=== PATIENT | female | born 1955 | race Caucasian/White ===

== ENCOUNTER 2018-01-28 21:36 | Emergency (ER) | payer OTHER ==
[2018-01-28] MEDS ORDERED: Catapres 0.1 MG PO ONE (22:04)
[2018-01-28] MEDS ORDERED: Catapres 0.1 MG ONE (22:13)
--- NOTE | 2018-01-28 22:20 | ERPHSYRPT ---
- History of Present Illness Time Seen by Provider: 01/28/18 21:57 Source: patient Exam Limitations: no limitations Patient Subjective Stated Complaint: pt called ambulance for feeling flushed, and not feeling right tonight at home. ems states b/p was high intially and pt was nervous Triage Nursing Assessment: pt alert, resp easy, skin w/d/p. face flushed, skin w /d Physician History: Pt states, she started feeling flushed, overheated, felt heart "thumping" and SOB, called 911. Arriving EMS tech took her blood pressure, it was > 200, and brought her in. She denies any chest pain, no cough, fever, nausea, vomiting, diaphoresis, other complaints. She takes Tenormin 25 mg BID for her blood pressure. Timing/Duration: today Severity: mild Modifying Factors: Improves With: other (nothing) Associated Symptoms: shortness of breath Allergies/Adverse Reactions: Sulfa (Sulfonamide Antibiotics) Allergy (Intermediate, Verified 01/28/18 21:46) Hives ciprofloxacin [From Cipro] Adverse Reaction (Verified 01/28/18 21:46) levofloxacin [From Levaquin] Adverse Reaction (Verified 01/28/18 21:46) Home Medications: Atenolol 50 mg [Tenormin 50 mg] 25 mg PO BID 12/29/15 [History] raNITIdine HCl [Ranitidine HCl] 150 mg PO BID 12/29/15 [History] ALPRAZolam [Xanax ER 0.5MG] 0.5 mg HS PRN PRN 01/28/18 [History] Hx Tetanus, Diphtheria Vaccination/Date Given: Yes Hx Influenza Vaccination/Date Given: Yes Hx Pneumococcal Vaccination/Date Given: No Immunizations Up to Date: Yes - Review of Systems Constitutional: No Symptoms Respiratory: Dyspnea Cardiac: Palpitations All Other Systems: Reviewed and Negative - Past Medical History Pertinent Past Medical History: Yes Neurological History: Migraines Cardiac History: Arrhythmia, Hypertension Endocrine Medical History: Hyperthyroidism GI Medical History: GERD, Irritable Bowel Psycho-Social History: Anxiety - Past Surgical History Past Surgical History: Yes Gastrointestinal: Cholecystectomy Female Surgical History: Hysterectomy, Section, Other Other Surgical History: d&c - Social History Smoking Status: Never smoker Exposure to second hand smoke: No Drug Use: none Patient Lives Alone: No - Female History Hx Last Menstrual Period: post Hx Now: No - Nursing Vital Signs Nursing Vital Signs: Initial Vital Signs Temperature 98.7 F 01/28/18 21:40 Pulse Rate 85 01/28/18 21:40 Respiratory Rate 16 01/28/18 21:40 Blood Pressure 185/70 01/28/18 21:40 O2 Sat by Pulse Oximetry 97 01/28/18 21:40 Pain Scale Pain Intensity 4 - Physical Exam General Appearance: no apparent distress Eye Exam: PERRL/EOMI Ears, Nose, Throat Exam: normal ENT inspection, pharynx normal Neck Exam: normal inspection, non-tender, supple, No carotid bruit, No JVD Respiratory Exam: normal breath sounds, lungs clear, airway intact, No chest tenderness Cardiovascular Exam: regular rate/rhythm, normal heart sounds, normal peripheral pulses, No murmur Gastrointestinal/Abdomen Exam: soft, normal bowel sounds, No tenderness Back Exam: normal inspection, No CVA tenderness Extremity Exam: normal inspection, No calf tenderness Neurologic Exam: alert, oriented x 3, cooperative, normal mood/affect Skin Exam: normal color, warm, dry, No rash Lymphatic Exam: No adenopathy SpO2 Interpretation: normal SpO2: 97 Oxygen Delivery: Room Air - Course EKG Interpreted by Me: RATE (66/min), Left Clay Deviation, NORMAL INTERVALS, Non -specific ST Changes, Other (unchanged since 12/29/15, repeat Ek:30 AM; unchanged) - Radiology Exams Chest X-ray Interpretation: Interpreted by me, Negative Ordered Tests: Active Orders 24 hr Category Date Time Status EKG-ER Only STAT Care 01/28/18 22:03 Active EKG-ER Only STAT Care 01/29/18 00:14 Active CHEST 2 VIEWS (PA AND LAT) Stat Exams 01/28/18 22:04 Taken CBC W DIFF Stat Lab 01/28/18 22:21 Completed CMP Stat Lab 01/28/18 22:21 Completed CULTURE,URINE Stat Lab 01/28/18 22:27 Received D-DIMER QUANTITATION Stat Lab 01/28/18 22:21 Completed MAGNESIUM Stat Lab 01/28/18 22:21 Completed NT PRO BNP Stat Lab 01/28/18 22:21 Completed PROTIME WITH INR Stat Lab 01/28/18 22:21 Completed TROPONIN Q3H Lab 01/28/18 22:21 Completed TROPONIN Q3H Lab 01/29/18 00:57 Completed TROPONIN Q3H Lab 01/29/18 04:15 Ordered TROPONIN Q3H Lab 01/29/18 07:15 Ordered TROPONIN Q3H Lab 01/29/18 10:15 Ordered TROPONIN Q3H Lab 01/29/18 18:15 Ordered UA W/ MICROSCOPIC Stat Lab 01/28/18 22:27 Completed Medication Summary Discontinued Medications Generic Name Dose Route Start Last Admin Trade Name Freq PRN Reason Stop Dose Admin Cephalexin HCl 500 mg 01/29/18 00:43 01/29/18 00:53 Keflex 500 Mg PO 01/29/18 00:44 500 mg STAT ONE Administration Cephalexin HCl Confirm 01/29/18 00:47 Keflex 500 Mg Administered 01/29/18 00:48 Dose 500 mg .ROUTE .STK-MED ONE Clonidine 0.1 mg 01/28/18 22:04 01/28/18 22:30 Catapres 0.1 Mg PO 01/28/18 22:05 Not Given STAT ONE Clonidine Confirm 01/28/18 22:13 Catapres 0.1 Mg Administered 01/28/18 22:14 Dose 0.1 mg .ROUTE .STK-MED ONE Lab/Rad Data: Laboratory Result Diagrams 01/28/18 22:21 01/28/18 22:21 Laboratory Results 01/29/18 01/28/18 01/28/18 Range/Units 00:57 22:27 22:21 WBC (4.0-10.5) K/mm3 RBC (4.1-5.4) M/mm3 Hgb (12.0-16.0) gm/dl Hct (35-47) % MCV (78-100) fl MCH (26-32) pg MCHC (32-36) g/dl RDW (11.5-14.0) % Plt Count (150-450) K/mm3 MPV (6-9.5) fl Gran % (36.0-66.0) % Eos # (Auto) (0-0.5) Absolute Lymphs (auto) (1.0-4.6) Absolute Monos (auto) (0.0-1.3) Lymphocytes % (24.0-44.0) % Monocytes % (0.0-12.0) % Eosinophils % (0.00-5.0) % Basophils % (0.0-0.4) % Absolute Granulocytes (1.4-6.9) Basophils # (0-0.4) PT (9.95-12.35) SECONDS INR (0.8-3.0) D-Dimer (215-500) ng/mL Sodium (137-145) mmol/L Potassium (3.5-5.1) mmol/L Chloride (98-107) mmol/L Carbon Dioxide (22-30) mmol/L Anion Gap (5-15) MEQ/L BUN (7-17) mg/dL Creatinine (0.52-1.04) mg/dL Estimated GFR ML/MIN Glucose (74-106) mg/dL Calcium (8.4-10.2) mg/dL Magnesium (1.6-2.3) mg/dL Total Bilirubin (0.2-1.3) mg/dL AST (14-36) U/L ALT (0-35) U/L Alkaline Phosphatase (38-126) U/L Troponin I 0.025 < 0.012 (0.000-0.034) ng/mL NT-Pro-B Natriuret Pep (0-900) pg/mL Serum Total Protein (6.3-8.2) g/dL Albumin (3.5-5.0) g/dL Ur Collection Type VOID Urine Color LT.YELLOW (YELLOW) Urine Appearance HAZY (CLEAR) Urine pH 5.0 (5-6) Ur Specific [place] 1.010 (1.005-1.025) Urine Protein NEGATIVE (Negative) Urine Ketones NEGATIVE (NEGATIVE) Urine Blood 5-10 (0-5) Jos/ul Urine Nitrite NEGATIVE (NEGATIVE) Urine Bilirubin NEGATIVE (NEGATIVE) Urine Urobilinogen NORMAL (0-1) mg/dL Ur Leukocyte Esterase 2+ (NEGATIVE) Urine Microscopic RBC 0-2 (0-2) /HPF Urine Microscopic WBC 5-10 (0-5) /HPF Ur Epithelial Cells RARE (FEW) /HPF Urine Bacteria RARE (NEGATIVE) /HPF Urine Culture Reflexed YES (NO) Urine Glucose NEGATIVE (NEGATIVE) mg/dL Specimen Received 01/28 [id number] 01/28/18 01/28/18 01/28/18 Range/Units 22:21 22:21 22:21 WBC 9.1 (4.0-10.5) K/mm3 RBC 4.70 (4.1-5.4) M/mm3 Hgb 13.2 (12.0-16.0) gm/dl Hct 40.7 (35-47) % MCV 86.6 (78-100) fl MCH 28.1 (26-32) pg MCHC 32.4 (32-36) g/dl RDW 14.7 H (11.5-14.0) % Plt Count 344 (150-450) K/mm3 MPV 9.1 (6-9.5) fl Gran % 76.5 H (36.0-66.0) % Eos # (Auto) 0.11 (0-0.5) Absolute Lymphs (auto) 1.29 (1.0-4.6) Absolute Monos (auto) 0.73 (0.0-1.3) Lymphocytes % 14.1 L (24.0-44.0) % Monocytes % 8.0 (0.0-12.0) % Eosinophils % 1.2 (0.00-5.0) % Basophils % 0.2 (0.0-0.4) % Absolute Granulocytes 6.99 H (1.4-6.9) Basophils # 0.02 (0-0.4) PT 12.5 H (9.95-12.35) SECONDS INR 1.07 (0.8-3.0) D-Dimer 231 (215-500) ng/mL Sodium 144 (137-145) mmol/L Potassium 3.7 (3.5-5.1) mmol/L Chloride 107 (98-107) mmol/L Carbon Dioxide 24 (22-30) mmol/L Anion Gap 16.2 H (5-15) MEQ/L BUN 14 (7-17) mg/dL Creatinine 0.78 (0.52-1.04) mg/dL Estimated GFR > 60.0 ML/MIN Glucose 122 H (74-106) mg/dL Calcium 9.4 (8.4-10.2) mg/dL Magnesium 1.9 (1.6-2.3) mg/dL Total Bilirubin 0.50 (0.2-1.3) mg/dL AST 14 (14-36) U/L ALT 17 (0-35) U/L Alkaline Phosphatase 104 (38-126) U/L Troponin I (0.000-0.034) ng/mL NT-Pro-B Natriuret Pep 83.5 (0-900) pg/mL Serum Total Protein 7.0 (6.3-8.2) g/dL Albumin 4.1 (3.5-5.0) g/dL Ur Collection Type Urine Color (YELLOW) Urine Appearance (CLEAR) Urine pH (5-6) Ur Specific [place] (1.005-1.025) Urine Protein (Negative) Urine Ketones (NEGATIVE) Urine Blood (0-5) Jos/ul Urine Nitrite (NEGATIVE) Urine Bilirubin (NEGATIVE) Urine Urobilinogen (0-1) mg/dL Ur Leukocyte Esterase (NEGATIVE) Urine Microscopic RBC (0-2) /HPF Urine Microscopic WBC (0-5) /HPF Ur Epithelial Cells (FEW) /HPF Urine Bacteria (NEGATIVE) /HPF Urine Culture Reflexed (NO) Urine Glucose (NEGATIVE) mg/dL Specimen Received - Progress Progress: improved Progress Note: 01/29/18 01:36 Pt denies any pain, or SOB< comfortable, ambulates. I discussed our findings with her, she was given Keflex PO, second troponin is negative, she is being discharged to rest x 2-3 days, drink plenty of fluids, and follow up with her doctor next week. Counseled pt/family regarding: lab results, diagnosis, need for follow-up, rad results - Departure Time of Disposition: 01:38 Departure Disposition: Home Clinical Impression: UTI (urinary tract infection) Qualifiers: Urinary tract infection type: site unspecified Hematuria presence: without hematuria Qualified Code(s): N39.0 - Urinary tract infection, site not specified Hypertension Qualifiers: Hypertension type: unspecified Qualified Code(s): I10 - Essential (primary) hypertension Condition: Stable Critical Care Time: No Referrals: BLAKE CHOI [Primary Care Provider] - Instructions: High Blood Pressure in Adults, Urinary Tract Infection, Adult (DC ) Additional Instructions: Rest x 2-3 days, drink plenty of fluids, return if severe pain, vomiting, fever > 102 F or chest pain, shortness of breath! Prescriptions: Cephalexin Mh 500 mg [Keflex 500 mg] 500 mg PO Q6H #28 capsule
[2018-01-28 22:24] LABS: BASOPHIL % 0.2 % (0.0-0.4); Basophil (Absolute #) 0.02 (0-0.4); Eosinophil % 1.2 % (0.00-5.0); Eosinophil (Absolute #) 0.11 (0-0.5); Granulocyte Absolute (ANC) 6.99 (1.4-6.9); Granulocytes % 76.5 % (36.0-66.0); Hematocrit 40.7 % (35-47); Hemoglobin 13.2 gm/dl (12.0-16.0); Lymphocyte (Absolute #) 1.29 (1.0-4.6); Lymphocytes % 14.1 % (24.0-44.0); Mean Cell Volume 86.6 fl (78-100); Mean Corpuscular Hemoglobin 28.1 pg (26-32); Mean Corpuscular Hgb Concent. 32.4 g/dl (32-36); Mean Platelet Volume 9.1 fl (6-9.5); Monocyte (Absolute #) 0.73 (0.0-1.3); Platelet Count 344 K/mm3 (150-450); Red Cell Distribution Width 14.7 % (11.5-14.0); White Blood Count 9.1 K/mm3 (4.0-10.5)
[2018-01-28 22:39] LABS: INR 1.07 (0.8-3.0)
[2018-01-28 22:45] LABS: ALBUMIN 4.1 g/dL (3.5-5.0); ALKALINE PHOSPHATASE 104 U/L (38-126); ANION GAP 16.2 MEQ/L (5-15); BLOOD UREA NITROGEN 14 mg/dL (7-17); CHLORIDE 107 mmol/L (98-107); Calcium 9.4 mg/dL (8.4-10.2); Carbon Dioxide 24 mmol/L (22-30); Creatinine 1 0.78 mg/dL (0.52-1.04); Glucose 122 mg/dL (74-106); Potassium 3.7 mmol/L (3.5-5.1); SGOT/AST 14 U/L (14-36); SGPT/ALT 17 U/L (0-35); SODIUM 144 mmol/L (137-145)
[2018-01-28 22:53] LABS: NT PRO BNP 83.5 pg/mL (0-900)
[2018-01-28 23:19] LABS: Appearance HAZY (CLEAR); Bilirubin NEGATIVE (NEGATIVE); Glucose NEGATIVE (NEGATIVE); Ketones NEGATIVE (NEGATIVE); Leukocyte Esterase 2+ (NEGATIVE); Nitrite NEGATIVE (NEGATIVE); Protein,Urine Dip NEGATIVE (Negative); Urobilinogen NORMAL mg/dL (0-1)
[2018-01-28 23:23] LABS: Bacteria RARE /HPF (NEGATIVE); Epithelial Cells RARE /HPF (FEW); RBC 0-2 /HPF (0-2)
[2018-01-29] MEDS ORDERED: KEFLEX 500 MG PO ONE (00:43)
[2018-01-29] MEDS ORDERED: KEFLEX 500 MG ONE (00:47)
[2018-01-29 01:53] VITALS: BP 156/96; PULSE 70; O2SAT 98
--- NOTE | 2018-01-29 08:18 | XRAY ---
Indication: Dyspnea. Hypertension. Comparison: December 29, 2015. PA/lateral chest again demonstrates normal heart and lungs with a few incidental calcified granulomas. Bony thorax intact again with mild osteopenia, degenerative changes, and left humeral neck enchondroma. Impression: Stable nonacute chest with chronic features.
== END 2018-01-29 01:54 | disposition home or self-care (01) ==
LOC: ED 21:36
DX: N39.0 Urinary tract infection, site not specified (principal); I10 Essential (primary) hypertension; Z79.899 Other long term (current) drug therapy
CPT/HCPCS: 36415; 71046; 80053; 81000; 83735; 83880; 84484; 85025; 85379; 85610; 87086; 93005; 99284; A9270-GY

== ENCOUNTER 2019-04-18 20:22 | Emergency (ER) | payer OTHER ==
--- NOTE | 2019-04-18 20:32 | ERPHSYRPT ---
- History of Present Illness Time Seen by Provider: 04/18/19 20:27 Source: patient, EMS Exam Limitations: no limitations Physician History: 63 y/o obese white female with h/o in the past of atrial fibrillation on atenolol for htn. pt not on anticoag tx but states she has not had atrial fibrillation for years. pts sx was palpitations. pt became anxious and took a xanax. sx was not resolving. ems called. upon arrival, ems states she was in atrial fibrillation with rvr briefly on strip but immediately converted to nsr. Timing/Duration: today Activities at Onset: none Quality: other (palpitations) Chest Pain Radiation: no radiation Severity of Pain-Max: none Severity of Pain-Current: none Nitro Today/Relief: no nitro taken today Aspirin Treatment Today: no aspirin today Associated Symptoms: denies symptoms Allergies/Adverse Reactions: Sulfa (Sulfonamide Antibiotics) Allergy (Intermediate, Verified 01/28/18 21:46) Hives azithromycin Allergy (Verified 04/18/19 20:39) ciprofloxacin [From Cipro] Adverse Reaction (Verified 01/28/18 21:46) levofloxacin [From Levaquin] Adverse Reaction (Verified 01/28/18 21:46) Home Medications: Atenolol 50 mg [Tenormin 50 mg] 25 mg PO BID 12/29/15 [History] raNITIdine HCl [Ranitidine HCl] 150 mg PO BID 12/29/15 [History] ALPRAZolam [Xanax ER 0.5MG] 0.5 mg PO Q4-6HPRN PRN 01/28/18 [History] Hx Tetanus, Diphtheria Vaccination/Date Given: Yes Hx Influenza Vaccination/Date Given: Yes Hx Pneumococcal Vaccination/Date Given: No - Review of Systems Constitutional: No Symptoms Eyes: No Symptoms Ears, Nose, & Throat: No Symptoms Respiratory: No Symptoms Cardiac: Palpitations, No Chest Pain, No Syncope Abdominal/Gastrointestinal: No Symptoms Genitourinary Symptoms: No Symptoms Musculoskeletal: No Symptoms Skin: No Symptoms Neurological: No Symptoms Psychological: No Symptoms Endocrine: No Symptoms Hematologic/Lymphatic: No Symptoms Immunological/Allergic: No Symptoms All Other Systems: Reviewed and Negative - Past Medical History Pertinent Past Medical History: Yes Neurological History: Migraines Cardiac History: Arrhythmia, Hypertension Endocrine Medical History: Hyperthyroidism GI Medical History: GERD, Irritable Bowel Psycho-Social History: Anxiety - Past Surgical History Past Surgical History: Yes Gastrointestinal: Cholecystectomy Female Surgical History: Hysterectomy, Section, Other Other Surgical History: d&c - Social History Smoking Status: Never smoker Exposure to second hand smoke: No Drug Use: none Patient Lives Alone: No - Nursing Vital Signs Nursing Vital Signs: Initial Vital Signs Temperature 98.0 F 04/18/19 20:41 Pulse Rate 79 04/18/19 20:41 Respiratory Rate 24 04/18/19 20:41 Blood Pressure 178/78 04/18/19 20:41 O2 Sat by Pulse Oximetry 96 04/18/19 20:41 Pain Scale Pain Intensity 0 - Physical Exam General Appearance: no apparent distress, alert, anxiety Eye Exam: PERRL/EOMI, eyes nml inspection Ears, Nose, Throat Exam: normal ENT inspection, moist mucous membranes Neck Exam: normal inspection, non-tender, supple, full range of motion Respiratory Exam: normal breath sounds, lungs clear, airway intact, No chest tenderness, No respiratory distress Cardiovascular Exam: regular rate/rhythm, normal heart sounds, normal peripheral pulses Gastrointestinal/Abdomen Exam: soft, normal bowel sounds, tenderness Pelvic Exam: not done Rectal Exam: not done Extremity Exam: normal inspection, normal range of motion, pelvis stable Neurologic Exam: alert, oriented x 3, cooperative, clinical research director II-XII nml as tested Skin Exam: normal color, warm, dry Lymphatic Exam: No adenopathy SpO2 Interpretation: normal O2 Delivery: Room Air - Course Nursing assessment & vital signs reviewed: Yes EKG Interpreted by Me: RATE (79), Sinus Rhythm, NORMAL AXIS, NORMAL INTERVALS, NORMAL QRS, Other (no changes when compared to ekg dated 01/29/18) Ordered Tests: Active Orders 24 hr Category Date Time Status Dog License Officer Supervisor STAT Care 04/18/19 20:35 Active EKG-ER Only STAT Care 04/18/19 20:35 Active IV Insertion STAT Care 04/18/19 20:35 Active Pulse Oximetry (ED) STAT Care 04/18/19 20:35 Active CBC W DIFF Stat Lab 04/18/19 21:00 Completed CMP Stat Lab 04/18/19 21:00 Completed D-DIMER QUANTITATION Stat Lab 04/18/19 21:00 Completed NT PRO BNP Stat Lab 04/18/19 21:00 Completed PROTIME WITH INR Stat Lab 04/18/19 21:00 Completed TROPONIN Q3H Lab 04/18/19 21:45 Completed TSH [TSH, 3RD Generation] Stat Lab 04/18/19 21:00 Completed Urinalysis with Microscopy Stat Lab 04/18/19 21:25 Completed Lab/Rad Data: Laboratory Result Diagrams 04/18/19 21:00 04/18/19 21:00 Laboratory Results 04/18/19 04/18/19 04/18/19 Range/Units 21:45 21:25 21:00 WBC (4.0-10.5) K/mm3 RBC (4.1-5.4) M/mm3 Hgb (12.0-16.0) gm/dl Hct (35-47) % MCV (78-100) fl MCH (26-32) pg MCHC (32-36) g/dl RDW (11.5-14.0) % Plt Count (150-450) K/mm3 MPV (6-9.5) fl Gran % (36.0-66.0) % Eos # (Auto) (0-0.5) Absolute Lymphs (auto) (1.0-4.6) Absolute Monos (auto) (0.0-1.3) Lymphocytes % (24.0-44.0) % Monocytes % (0.0-12.0) % Eosinophils % (0.00-5.0) % Basophils % (0.0-0.4) % Absolute Granulocytes (1.4-6.9) Basophils # (0-0.4) PT (9.95-12.35) SECONDS INR (0.8-3.0) D-Dimer (215-500) ng/mL Sodium (137-145) mmol/L Potassium (3.5-5.1) mmol/L Chloride (98-107) mmol/L Carbon Dioxide (22-30) mmol/L Anion Gap (5-15) MEQ/L BUN (7-17) mg/dL Creatinine (0.52-1.04) mg/dL Estimated GFR ML/MIN Glucose (74-106) mg/dL Calcium (8.4-10.2) mg/dL Total Bilirubin (0.2-1.3) mg/dL AST (14-36) U/L ALT (0-35) U/L Alkaline Phosphatase (38-126) U/L Troponin I < 0.012 (0.000-0.034) ng/mL NT-Pro-B Natriuret Pep (0-900) pg/mL Serum Total Protein (6.3-8.2) g/dL Albumin (3.5-5.0) g/dL TSH 3rd Generation 0.258 L (0.47-4.68) mIU/L Urine Color YELLOW (YELLOW) Urine Appearance CLEAR (CLEAR) Urine pH 5.0 (5-6) Ur Specific [place] 1.010 (1.005-1.025) Urine Protein 30 (Negative) Urine Ketones NEGATIVE (NEGATIVE) Urine Blood SMALL (0-5) Jos/ul Urine Nitrite NEGATIVE (NEGATIVE) Urine Bilirubin NEGATIVE (NEGATIVE) Urine Urobilinogen NEGATIVE (0-1) mg/dL Ur Leukocyte Esterase TRACE (NEGATIVE) Urine WBC (Auto) 0-2 (0-5) /HPF Urine RBC (Auto) NONE (0-2) /HPF U Epithel Cells (Auto) RARE (FEW) /HPF Urine Bacteria (Auto) NONE (NEGATIVE) /HPF Urine Mucus (Auto) SLIGHT (NEGATIVE) /HPF Urine Glucose NEGATIVE (NEGATIVE) mg/dL 04/18/19 04/18/19 04/18/19 Range/Units 21:00 21:00 21:00 WBC 7.8 (4.0-10.5) K/mm3 RBC 4.41 (4.1-5.4) M/mm3 Hgb 12.2 (12.0-16.0) gm/dl Hct 38.0 (35-47) % MCV 86.2 (78-100) fl MCH 27.7 (26-32) pg MCHC 32.1 (32-36) g/dl RDW 14.6 H (11.5-14.0) % Plt Count 314 (150-450) K/mm3 MPV 8.8 (6-9.5) fl Gran % 72.1 H (36.0-66.0) % Eos # (Auto) 0.13 (0-0.5) Absolute Lymphs (auto) 1.37 (1.0-4.6) Absolute Monos (auto) 0.64 (0.0-1.3) Lymphocytes % 17.7 L (24.0-44.0) % Monocytes % 8.2 (0.0-12.0) % Eosinophils % 1.7 (0.00-5.0) % Basophils % 0.3 (0.0-0.4) % Absolute Granulocytes 5.60 (1.4-6.9) Basophils # 0.02 (0-0.4) PT 12.9 H (9.95-12.35) SECONDS INR 1.14 (0.8-3.0) D-Dimer < 215 L (215-500) ng/mL Sodium 141 (137-145) mmol/L Potassium 4.2 (3.5-5.1) mmol/L Chloride 108 H (98-107) mmol/L Carbon Dioxide 25 (22-30) mmol/L Anion Gap 12.8 (5-15) MEQ/L BUN 15 (7-17) mg/dL Creatinine 0.65 (0.52-1.04) mg/dL Estimated GFR > 60.0 ML/MIN Glucose 121 H (74-106) mg/dL Calcium 9.4 (8.4-10.2) mg/dL Total Bilirubin 0.60 (0.2-1.3) mg/dL AST 18 (14-36) U/L ALT 18 (0-35) U/L Alkaline Phosphatase 93 (38-126) U/L Troponin I (0.000-0.034) ng/mL NT-Pro-B Natriuret Pep 141 (0-900) pg/mL Serum Total Protein 7.2 (6.3-8.2) g/dL Albumin 4.1 (3.5-5.0) g/dL TSH 3rd Generation (0.47-4.68) mIU/L Urine Color (YELLOW) Urine Appearance (CLEAR) Urine pH (5-6) Ur Specific [place] (1.005-1.025) Urine Protein (Negative) Urine Ketones (NEGATIVE) Urine Blood (0-5) Jos/ul Urine Nitrite (NEGATIVE) Urine Bilirubin (NEGATIVE) Urine Urobilinogen (0-1) mg/dL Ur Leukocyte Esterase (NEGATIVE) Urine WBC (Auto) (0-5) /HPF Urine RBC (Auto) (0-2) /HPF U Epithel Cells (Auto) (FEW) /HPF Urine Bacteria (Auto) (NEGATIVE) /HPF Urine Mucus (Auto) (NEGATIVE) /HPF Urine Glucose (NEGATIVE) mg/dL - Progress Progress: improved, unchanged Air Movement: good Counseled pt/family regarding: lab results, diagnosis, need for follow-up - Departure Departure Disposition: Home Clinical Impression: Palpitations, Low TSH level Condition: Stable Critical Care Time: No Referrals: BLAKE CHOI [Primary Care Provider] - Additional Instructions: call your primary doctor tomorrow to arrange for follow up appointment as indicated. continue taking your medications as prescribed.
[2019-04-18 21:05] LABS: BASOPHIL % 0.3 % (0.0-0.4); Basophil (Absolute #) 0.02 (0-0.4); Eosinophil % 1.7 % (0.00-5.0); Eosinophil (Absolute #) 0.13 (0-0.5); Granulocytes % 72.1 % (36.0-66.0); Hemoglobin 12.2 gm/dl (12.0-16.0); Lymphocyte (Absolute #) 1.37 (1.0-4.6); Lymphocytes % 17.7 % (24.0-44.0); Mean Cell Volume 86.2 fl (78-100); Mean Corpuscular Hemoglobin 27.7 pg (26-32); Mean Corpuscular Hgb Concent. 32.1 g/dl (32-36); Mean Platelet Volume 8.8 fl (6-9.5); Monocyte (Absolute #) 0.64 (0.0-1.3); Monocytes % 8.2 % (0.0-12.0); Platelet Count 314 K/mm3 (150-450); Red Blood Count 4.41 M/mm3 (4.1-5.4); Red Cell Distribution Width 14.6 % (11.5-14.0); White Blood Count 7.8 K/mm3 (4.0-10.5)
[2019-04-18 21:16] LABS: INR 1.14 (0.8-3.0); PROTIME 12.9 SECONDS (9.95-12.35)
[2019-04-18 21:28] LABS: D-DIMER QUANTITATION < 215 ng/mL (215-500)
[2019-04-18 21:29] LABS: ALBUMIN 4.1 g/dL (3.5-5.0); ALKALINE PHOSPHATASE 93 U/L (38-126); ANION GAP 12.8 MEQ/L (5-15); BLOOD UREA NITROGEN 15 mg/dL (7-17); CHLORIDE 108 mmol/L (98-107); Calcium 9.4 mg/dL (8.4-10.2); Carbon Dioxide 25 mmol/L (22-30); Creatinine 1 0.65 mg/dL (0.52-1.04); Glucose 121 mg/dL (74-106); NT PRO BNP 141 pg/mL (0-900); Potassium 4.2 mmol/L (3.5-5.1); SGOT/AST 18 U/L (14-36); SGPT/ALT 18 U/L (0-35); SODIUM 141 mmol/L (137-145); Total Protein 7.2 g/dL (6.3-8.2)
[2019-04-18 21:35] LABS: Appearance CLEAR (CLEAR); Bilirubin NEGATIVE (NEGATIVE); Blood SMALL Ery/ul (0-5); Epithelial Cells RARE /HPF (FEW); Glucose NEGATIVE (NEGATIVE); Ketones NEGATIVE (NEGATIVE); Leukocyte Esterase TRACE (NEGATIVE); Mucus SLIGHT /HPF (NEGATIVE); Nitrite NEGATIVE (NEGATIVE); Protein,Urine Dip 30 (Negative); Urobilinogen NEGATIVE mg/dL (0-1); WBC 0-2 /HPF (0-5)
[2019-04-18 23:02] VITALS: BP 147/96; PULSE 66; O2SAT 98
== END 2019-04-18 23:08 | disposition home or self-care (01) ==
LOC: ED 20:22
DX: R00.2 Palpitations (principal)
CPT/HCPCS: 36415; 80053; 81001; 83880; 84443; 84484; 85025; 85379; 85610; 93005; 93041; 94760; 99284